=== PATIENT | female | born 1950 | race Caucasian/White ===

== ENCOUNTER 2019-03-15 04:37 | Day surgery (SDC) | payer OTHER, MEDICARE ==
[2019-03-09 16:54] VITALS: BMI 21.1
[2019-03-15] MEDS ORDERED: MIDAZOLAM HCL 2 MG/2 ML SINGLE DOSE VIAL ONE (07:42)
[2019-03-15] MEDS ORDERED: SUCCINYLCHOLINE CHLORIDE 200 MG/10 ML SYRINGE ONE (07:42)
[2019-03-15] MEDS ORDERED: PROPOFOL 20 ML ONE ×5 (07:42→07:43)
--- NOTE | 2019-03-15 08:01 | HP ---
History & Physical Update - History History: No Change - Physical Physical: No Change - Assessment Assessment: No Change - Plan Plan: No Change (No change in HP)
[2019-03-15] MEDS ORDERED: IBUPROFEN 400 MG TABLET (FP) PO PRN (08:02)
[2019-03-15] MEDS ORDERED: ACETAMINOPHEN 325 MG TABLET (FP) PO PRN (08:02)
--- NOTE | 2019-03-15 08:05 | OP ---
Operative Note - Note: Operative Date: 03/15/19 Pre-Operative Diagnosis: Endometrial polyps Operation: Hysteroscopic myomectomy. Suction DC Post-Operative Diagnosis: Same as Pre-op Anesthesia: General Operative Report Dictated: Yes
[2019-03-15] MEDS ORDERED: oxyCODONE HCL 5 MG TABLET PO PRN (09:07)
[2019-03-15] MEDS ORDERED: ONDANSETRON 4 MG/2 ML VIAL IVPUSH PRN (09:07)
[2019-03-15] MEDS ORDERED: PROMETHAZINE HCL 25 MG/1 ML VIAL IVPUSH PRN (09:07)
[2019-03-15] MEDS ORDERED: LACTATED RINGERS SOLUTION 1,000 ML IV SCH (09:15)
[2019-03-15 11:17] VITALS: BP 110/73; PULSE 59; TEMP 97.9
--- NOTE | 2019-03-16 17:54 | PATH ---
Surgical Pathology Report Patient Name: FRANCHESKA JOHNSON [facility]. Rec. #: [id number] /Age/Gender: 1950 (Age: 68) / F Account: [id number] Location: [facility] SURGICAL Taken: 03/15/2019 Received: 03/15/2019 Reported: 03/16/2019 Physicians: Kaleigh Gilbert M.D. Specimen(s) Received A: ENDOMETRIAL POLYP B: ENDOMETRIAL FIBROID Clinical History Endometrial polyp Final Diagnosis A. ENDOMETRIAL POLYP, POLYPECTOMY: FRAGMENTS OF ENDOMETRIAL POLYP. B. ENDOMETRIAL 'FIBROID', HYSTEROSCOPIC RESECTION: FRAGMENTS OF ENDOMETRIAL POLYP. Electronically Signed Pamela Maynard M.D. Gross Description A. Received in formalin labeled "endometrial polyp" are multiple irregular fragments of pink-hodgson soft tissue measuring 0.8 x 0.5 x 0.3 cm. Entire specimen is submitted in one cassette. B. Received in formalin labeled "endometrial fibroid" are 2 irregular fragments of pink-hodgson soft tissue ranging in size from 0.4-0.7 cm. The entire specimen is submitted in one cassette. MLSZ/03/15/2019 sanml/03/15/2019
--- NOTE | 2019-03-29 15:50 | OP ---
DATE OF OPERATION: 03/15/2019 PREOPERATIVE DIAGNOSIS: Endometrial polyps. OPERATION: Hysteroscopic myomectomy, suction D&C. POSTOPERATIVE DIAGNOSIS: Endometrial polyps. SURGEON: Kaleigh Gilbert MD ESTIMATED BLOOD LOSS: 5 mL. PROCEDURE: Patient was taken to the operating room, placed in dorsal lithotomy position, prepped and draped in the usual sterile fashion. Time-out was performed in accordance with hospital regulation. A speculum was placed in the vagina, anterior lip of the cervix grasped with a single-tooth tenaculum. Cervix was then dilated to accommodate the operative hysteroscope. Cautery and cutting of the endometrial polyps was done. The endometrial cavity appeared normal. Suction D&C was then done. All instruments were then removed. Patient tolerated the procedure well and was taken to recovery room in stable condition. KALEIGH GILBERT M.D. BRIDGER/[id number]
== END 2019-03-15 11:15 | disposition home or self-care (01) ==
LOC: JASU-SURG 04:37
PROVIDERS: ATTEND Obstetrics & Gynecology
PROC: 0UB98ZX Excision of Uterus, Via Natural or Artificial Opening Endoscopic, Diagnostic (ICD-10-PCS; principal; 2019-03-15 08:00)
PROC: 0UDB8ZX Extraction of Endometrium, Via Natural or Artificial Opening Endoscopic, Diagnostic (ICD-10-PCS; 2019-03-15 08:00)
DX: N84.0 Polyp of corpus uteri (principal)
CPT/HCPCS: 86850; 86900; 86901; 88305-TC; 94760

== ENCOUNTER 2019-05-28 09:31 | Day surgery (SDC) | payer OTHER, MEDICARE ==
[2019-05-28] MEDS ORDERED: DENOSUMAB 60 MG/ML DISP.SYRIN SQ ONE (10:00)
[2019-05-28 11:42] VITALS: BP 109/62; PULSE 64; TEMP 98
== END 2019-05-28 10:30 | disposition home or self-care (01) ==
LOC: JASU-ENDO 09:31
PROVIDERS: ATTEND Internal Medicine Endocrinology, Diabetes & Metabolism
PROC: 3E013GC Introduction of Other Therapeutic Substance into Subcutaneous Tissue, Percutaneous Approach (ICD-10-PCS; principal; 2019-05-28)
DX: M81.0 Age-related osteoporosis without current pathological fracture (principal)
CPT/HCPCS: 96372; J0897

== ENCOUNTER 2020-05-10 11:16 | Day surgery (SDC) | payer OTHER, MEDICARE ==
[2020-05-10] MEDS ORDERED: DENOSUMAB 60 MG/ML DISP.SYRIN SQ ONE (12:00)
[2020-05-10 12:30] VITALS: BP 98/58; PULSE 69; TEMP 99.1
== END 2020-05-10 11:50 | disposition home or self-care (01) ==
LOC: FINFUSION 11:16 → FM/S 11:18 → FINFUSION 11:50
PROVIDERS: ATTEND Internal Medicine Endocrinology, Diabetes & Metabolism
PROC: 3E013GC Introduction of Other Therapeutic Substance into Subcutaneous Tissue, Percutaneous Approach (ICD-10-PCS; principal; 2020-05-10)
DX: M81.0 Age-related osteoporosis without current pathological fracture (principal)
CPT/HCPCS: 96372; J0897

== ENCOUNTER → 2020-10-11 | Day surgery (SDC) | payer OTHER, MEDICARE ==
[2020-10-04 15:09] VITALS: BMI 20.5
[~2020-10-11] MED LIST: KETAMINE HCL 200 MG/20 ML VIAL ONE
[2020-10-11 08:45] VITALS: TEMP 98
[2020-10-11 09:35] VITALS: BP 107/60; PULSE 65
== END | disposition home or self-care (01) ==
LOC: JASU-ENDO 04:45
PROVIDERS: ATTEND Internal Medicine Gastroenterology
PROC: 0DBL8ZX Excision of Transverse Colon, Via Natural or Artificial Opening Endoscopic, Diagnostic (ICD-10-PCS; principal; 2020-10-11 08:00)
DX: Z12.11 Encounter for screening for malignant neoplasm of colon (principal); D12.3 Benign neoplasm of transverse colon; K59.89 Other specified functional intestinal disorders; K64.4 Residual hemorrhoidal skin tags; K64.8 Other hemorrhoids

== ENCOUNTER 2020-12-01 11:26 | Day surgery (SDC) | payer OTHER, MEDICARE ==
[2020-12-01] MEDS ORDERED: DENOSUMAB 60 MG/ML DISP.SYRIN SQ ONE (12:15)
[2020-12-01 13:19] VITALS: BP 112/62; PULSE 69; TEMP 97.9
== END 2020-12-01 12:45 | disposition home or self-care (01) ==
LOC: FINFUSION 11:26 → FM/S 11:38 → FINFUSION 12:45
PROVIDERS: ATTEND Internal Medicine Endocrinology, Diabetes & Metabolism
PROC: 3E013GC Introduction of Other Therapeutic Substance into Subcutaneous Tissue, Percutaneous Approach (ICD-10-PCS; principal; 2020-12-01)
DX: M81.0 Age-related osteoporosis without current pathological fracture (principal)
CPT/HCPCS: 96372; J0897

== ENCOUNTER 2021-05-30 11:41 | Day surgery (SDC) | payer OTHER, MEDICARE ==
[2021-05-30] MEDS ORDERED: DENOSUMAB 60 MG/ML DISP.SYRIN SQ ONE (12:15)
[2021-05-30 12:57] VITALS: BP 104/56; PULSE 66; TEMP 98.1
== END 2021-05-30 12:00 | disposition home or self-care (01) ==
LOC: FINFUSION 11:41 → FM/S 11:43 → FINFUSION 12:00
PROVIDERS: ATTEND Internal Medicine Endocrinology, Diabetes & Metabolism
PROC: 3E013GC Introduction of Other Therapeutic Substance into Subcutaneous Tissue, Percutaneous Approach (ICD-10-PCS; principal; 2021-05-30)
DX: M81.0 Age-related osteoporosis without current pathological fracture (principal)
CPT/HCPCS: 96372; J0897

== ENCOUNTER 2021-11-30 11:12 | Day surgery (SDC) | payer OTHER, MEDICARE ==
[2021-11-30 11:30] VITALS: BP 90/55; PULSE 64; TEMP 99
[2021-11-30] MEDS ORDERED: DENOSUMAB 60 MG/ML DISP.SYRIN SQ ONE (12:00)
== END 2021-11-30 14:21 | disposition home or self-care (01) ==
LOC: FINFUSION 11:12 → FM/S 11:15 → FINFUSION 14:21
PROVIDERS: ATTEND Internal Medicine Endocrinology, Diabetes & Metabolism
PROC: 3E013GC Introduction of Other Therapeutic Substance into Subcutaneous Tissue, Percutaneous Approach (ICD-10-PCS; principal; 2021-11-30)
DX: M81.0 Age-related osteoporosis without current pathological fracture (principal)
CPT/HCPCS: 96372; J0897

== ENCOUNTER 2022-11-27 11:05 | Day surgery (SDC) | payer OTHER, MEDICARE ==
[2022-11-27] MEDS ORDERED: DENOSUMAB 60 MG/ML DISP.SYRIN SQ ONE (11:30)
[2022-11-27 11:47] VITALS: BP 101/50; PULSE 57; RESP 19; TEMP 97.6
== END 2022-11-27 11:48 | disposition home or self-care (01) ==
LOC: FM/S 11:05 → FINJECTION 11:05
PROVIDERS: ATTEND Internal Medicine Endocrinology, Diabetes & Metabolism
PROC: 3E013GC Introduction of Other Therapeutic Substance into Subcutaneous Tissue, Percutaneous Approach (ICD-10-PCS; principal; 2022-11-27)
DX: M81.0 Age-related osteoporosis without current pathological fracture (principal)
CPT/HCPCS: 96372; J0897

== ENCOUNTER 2024-01-08 11:18 | Day surgery (SDC) | payer OTHER, MEDICARE ==
[2024-01-08] MEDS: DENOSUMAB 60 MG/ML DISP.SYRIN SQ ONE (11:46)
[2024-01-08 11:58] VITALS: BP 96/75; PULSE 57; RESP 16; TEMP 97.5
== END 2024-01-08 12:04 | disposition home or self-care (01) ==
LOC: FINFUSION 11:18 → FM/S 11:18 → FINFUSION 12:04
PROVIDERS: ATTEND Internal Medicine Endocrinology, Diabetes & Metabolism
PROC: 3E013GC Introduction of Other Therapeutic Substance into Subcutaneous Tissue, Percutaneous Approach (ICD-10-PCS; principal; 2024-01-08)
DX: M81.0 Age-related osteoporosis without current pathological fracture (principal)
CPT/HCPCS: 96372; J0897

== ENCOUNTER 2024-11-04 05:07 | Day surgery (SDC) | payer OTHER, MEDICARE ==
[2024-11-02 11:21] VITALS: BMI 20.5
[2024-11-04] MEDS ORDERED: LIDOCAINE HCL/PF 2% SDV 5ML VIAL ONE (07:20)
[2024-11-04] MEDS ORDERED: LIDOCAINE HCL/PF 1% SDV 5ML VIAL ONE (07:20)
[2024-11-04] MEDS ORDERED: BUPIVACAINE HCL/PF 0.5% (5MG/ML) 10 ML VIAL ONE (07:20)
[2024-11-04] MEDS ORDERED: DEXAMETHASONE SOD PHOSPHATE 10 MG/1 ML VIAL ONE (07:21)
[2024-11-04 07:28] VITALS: RESP 18
[2024-11-04] MEDS: BUPIVACAINE HCL/PF 0.5% (5MG/ML) 10 ML VIAL IJ ONE (08:33)
[2024-11-04] MEDS ORDERED: ACETAMINOPHEN 500 MG TABLET (FP) PO PRN (08:40)
[2024-11-04 08:46] VITALS: BP 111/69; PULSE 66; TEMP 98.6
== END 2024-11-04 09:20 | disposition home or self-care (01) ==
LOC: JASU-SURG 05:07
PROVIDERS: ATTEND Pain Medicine Pain Medicine
PROC: 3E0T3BZ Introduction of Anesthetic Agent into Peripheral Nerves and Plexi, Percutaneous Approach (ICD-10-PCS; principal; 2024-11-04 08:28)
DX: M47.812 Spondylosis without myelopathy or radiculopathy, cervical region (principal)
CPT/HCPCS: 76000-TC-FY; J1100

== ENCOUNTER 2024-12-03 07:02 | Day surgery (SDC) | payer OTHER, MEDICARE ==
[2024-12-03] MEDS ORDERED: TRIAMCINOLONE ACET 40MG/1ML VIAL ONE (07:34)
[2024-12-03] MEDS ORDERED: LIDOCAINE HCL/PF 2% SDV 5ML VIAL ONE (07:34)
[2024-12-03] MEDS ORDERED: LIDOCAINE HCL/PF 1% SDV 5ML VIAL ONE (07:34)
[2024-12-03] MEDS ORDERED: DEXAMETHASONE SOD PHOSPHATE 10 MG/1 ML VIAL ONE (07:34)
[2024-12-03 08:08] VITALS: RESP 16; TEMP 97.4
[2024-12-03] MEDS: LIDOCAINE HCL 1% PRESERVATIVE FREE - 30ML VIAL IJ ONE (08:36)
[2024-12-03] MEDS ORDERED: ACETAMINOPHEN 500 MG TABLET (FP) PO PRN (08:37)
[2024-12-03] MEDS: IOHEXOL 180 MG/1 ML ML IJ ONE (08:37)
[2024-12-03] MEDS: DEXAMETHASONE SOD PHOSPHATE 10 MG/1 ML VIAL IM ONE (08:37)
[2024-12-03 08:55] VITALS: BP 121/69; PULSE 59
== END 2024-12-03 09:37 | disposition home or self-care (01) ==
LOC: JASU-SURG 07:02
PROVIDERS: ATTEND Pain Medicine Pain Medicine
PROC: 3E0R3BZ Introduction of Anesthetic Agent into Spinal Canal, Percutaneous Approach (ICD-10-PCS; 2024-12-03)
PROC: 3E0R33Z Introduction of Anti-inflammatory into Spinal Canal, Percutaneous Approach (ICD-10-PCS; principal; 2024-12-03 09:00)
DX: M54.12 Radiculopathy, cervical region (principal)
CPT/HCPCS: 76000-TC-FY; J1100

== ENCOUNTER 2025-01-07 06:30 | Day surgery (SDC) | payer OTHER, MEDICARE ==
[2024-12-31 14:26] VITALS: BMI 20.5
[~2025-01-07 06:30] MED LIST changes: +ACETAMINOPHEN 500 MG TABLET (FP) PO PRN; -KETAMINE HCL 200 MG/20 ML VIAL ONE
[2025-01-07] MEDS ORDERED: LIDOCAINE HCL/PF 1% SDV 5ML VIAL ONE (07:33)
[2025-01-07 09:02] VITALS: PULSE 65; RESP 20
[2025-01-07] MEDS: LIDOCAINE HCL 1% PRESERVATIVE FREE - 30ML VIAL IJ ONE (10:28)
[2025-01-07 11:03] VITALS: BP 113/67; TEMP 97.6
[2025-01-07] MEDS ORDERED: ACETAMINOPHEN 500 MG TABLET (FP) PO PRN (13:32)
== END 2025-01-07 12:03 | disposition home or self-care (01) ==
LOC: JASU-SURG 06:30
PROVIDERS: ATTEND Pain Medicine Pain Medicine
PROC: 01HY3MZ Insertion of Neurostimulator Lead into Peripheral Nerve, Percutaneous Approach (ICD-10-PCS; principal; 2025-01-07 09:45)
DX: G89.4 Chronic pain syndrome (principal); M54.2 Cervicalgia
CPT/HCPCS: 64555; C1778; 76000-TC-FY

== ENCOUNTER 2025-03-17 06:19 | Day surgery (SDC) | payer OTHER, MEDICARE ==
[2025-03-17] MEDS ORDERED: TRIAMCINOLONE ACET 40MG/1ML VIAL ONE (07:35)
[2025-03-17] MEDS ORDERED: SODIUM CHLORIDE 0.9% P/F 10 ML VIAL IJ ONE (07:46)
[2025-03-17] MEDS ORDERED: ACETAMINOPHEN 500 MG TABLET (FP) PO PRN (09:09)
[2025-03-17 10:03] VITALS: RESP 18
[2025-03-17] MEDS: BUPIVACAINE HCL/PF 0.5% (5MG/ML) 10 ML VIAL IJ ONE ×2 (11:09)
[2025-03-17 12:50] VITALS: BP 115/64; PULSE 63; TEMP 97.3
== END 2025-03-17 11:35 | disposition home or self-care (01) ==
LOC: JASU-SURG 06:19
PROVIDERS: ATTEND Pain Medicine Pain Medicine
PROC: 3E0T33Z Introduction of Anti-inflammatory into Peripheral Nerves and Plexi, Percutaneous Approach (ICD-10-PCS; 2025-03-17)
PROC: 3E0T3BZ Introduction of Anesthetic Agent into Peripheral Nerves and Plexi, Percutaneous Approach (ICD-10-PCS; principal; 2025-03-17 10:45)
DX: M47.812 Spondylosis without myelopathy or radiculopathy, cervical region (principal)
CPT/HCPCS: 76000-TC-FY